=== PATIENT | female | born 1985 | race Caucasian/White ===

== ENCOUNTER → 2021-08-13 | Day surgery (SDC) | payer OTHER ==
[~2021-08-13] MED LIST: AMITRIPTYLINE150 MG PO; CYCLOBENZAPRINE10 MG PO; IBUPROFEN800 MG PO; PROMETHAZINE-D473 M1 GT; WAL-ZYR10 M1 PO
[2021-08-13 09:23] LABS: BUN/CREATININE RATIO 7 (0-10)
== END | disposition home or self-care (01) ==
LOC: OR 06:50
PROVIDERS: Internal Medicine Gastroenterology
DX: K62.5 Hemorrhage of anus and rectum (principal); K58.1 Irritable bowel syndrome with constipation; K62.89 Other specified diseases of anus and rectum; E66.9 Obesity, unspecified; Z88.0 Allergy status to penicillin; Z68.32 Body mass index [BMI] 32.0-32.9, adult; Z79.899 Other long term (current) drug therapy
CPT/HCPCS: 80053; 84439; 84443; 84480; J2704; J7040; J7120